=== PATIENT | female | born 1965 | race Caucasian/White ===

== ENCOUNTER 2022-09-29 11:41 | Outpatient (CLI) | payer MEDICAID ==
[2022-09-29 12:05] LABS: BASOPHILS % (AUTO) 0.9 %; EOSINOPHILS # (AUTO) 0.2 10^3/uL (0.0-0.7); EOSINOPHILS % (AUTO) 3.8 %; HGB - HEMOGLOBIN 12.6 g/dL (12.0-16.0); LYMPHOCYTES # (AUTO) 1.5 10^3/uL (1.5-3.5); LYMPHOCYTES % (AUTO) 33.4 %; MEAN CORPUSCULAR HEMOGLOBIN 29.7 pg (27.0-31.0); MEAN CORPUSCULAR HGB CONC 32.3 g/dL (32.0-36.0); MEAN PLATELET VOLUME 10.2 fL (7.9-10.8); MONOCYTES # (AUTO) 0.4 10^3/uL (0.0-1.0); MONOCYTES % (AUTO) 8.2 %; NEUTROPHILS # (AUTO) 2.4 10^3/uL (1.5-6.6); NEUTROPHILS % (AUTO) 53.5 %; PLT - PLATELET COUNT 239 10^3/uL (130-450); RED BLOOD COUNT 4.24 10^6/uL (4.20-5.40); RED CELL DISTRIBUTION WIDTH 12.1 % (12.0-15.0); WHITE BLOOD COUNT 4.5 x10^3/uL (4.8-10.8)
[2022-09-29 12:23] LABS: ALBUMIN 3.9 g/dL (3.2-5.5); ALBUMIN/GLOBULIN RATIO 1.3 (1.0-2.2); ALKALINE PHOSPHATASE 70 IU/L (42-121); ALT ALANINE AMINOTRANSFERASE 16 IU/L (10-60); AST ASPARTATE AMINOTRANSFERASE 21 IU/L (10-42); BILIRUBIN,TOTAL 0.5 mg/dL (0.2-1.0); BUN - BLOOD UREA NITROGEN 13 mg/dL (6-20); CALCIUM 9.1 mg/dL (8.5-10.3); CARBON DIOXIDE - CO2 24 mmol/L (21-32); CHLORIDE 107 mmol/L (101-111); CHOL/HDL RATIO 1.8 (<4.4); CHOLESTEROL 125 mg/dL; CREATININE 0.7 mg/dL (0.4-1.0); GFR - MDRD 86 (>89); GLUCOSE 106 mg/dL (70-100); HDL CHOLESTEROL 68 mg/dL; LDL CHOLESTEROL,CALCULATED 48 mg/dL; LDL/HDL RATIO 0.7 (<4.4); POTASSIUM 3.5 mmol/L (3.5-5.0); SODIUM 140 mmol/L (135-145); TRIGLYCERIDES 47 mg/dL; VLDL CHOLESTEROL 9 mg/dL
[2022-09-29 12:32] LABS: THYROID STIMULATING HORMONE 0.64 uIU/mL (0.34-5.60)
== END 2022-09-29 11:42 | disposition home or self-care (01) ==
LOC: LAB 11:41
PROVIDERS: ATTEND Physician Assistant
DX: I10 Essential (primary) hypertension (principal); Z13.220 Encounter for screening for lipoid disorders
CPT/HCPCS: 36415; 80053; 80061; 83721; 84443; 85025

== ENCOUNTER 2022-10-11 15:19 | Emergency (ER) | payer MEDICAID ==
[2022-10-11 16:23] LABS: BASOPHILS % (AUTO) 0.8 %; EOSINOPHILS % (AUTO) 1.2 %; HCT - HEMATOCRIT 44.1 % (37.0-47.0); HGB - HEMOGLOBIN 13.8 g/dL (12.0-16.0); LYMPHOCYTES # (AUTO) 1.4 10^3/uL (1.5-3.5); LYMPHOCYTES % (AUTO) 59.5 %; MEAN CORPUSCULAR HEMOGLOBIN 28.5 pg (27.0-31.0); MEAN CORPUSCULAR HGB CONC 31.3 g/dL (32.0-36.0); MEAN CORPUSCULAR VOLUME 91.1 fL (81.0-99.0); MONOCYTES # (AUTO) 0.2 10^3/uL (0.0-1.0); NEUTROPHILS # (AUTO) 0.8 10^3/uL (1.5-6.6); NEUTROPHILS % (AUTO) 31.5 %; PLT - PLATELET COUNT 183 10^3/uL (130-450); RED BLOOD COUNT 4.84 10^6/uL (4.20-5.40); RED CELL DISTRIBUTION WIDTH 12.2 % (12.0-15.0); WHITE BLOOD COUNT 2.4 x10^3/uL (4.8-10.8)
[2022-10-11 16:24] LABS: SLIDE REVIEW? Indicated
[2022-10-11 16:36] LABS: ALBUMIN 4.1 g/dL (3.2-5.5); ALBUMIN/GLOBULIN RATIO 1.2 (1.0-2.2); BILIRUBIN,TOTAL 0.3 mg/dL (0.2-1.0); CALCIUM 9.2 mg/dL (8.5-10.3); CREATININE 0.7 mg/dL (0.4-1.0); POTASSIUM 3.9 mmol/L (3.5-5.0); TOTAL PROTEIN 7.4 g/dL (6.7-8.2)
--- NOTE | 2022-10-11 17:05 | CT Report ---
PROCEDURE: HEAD WO INDICATIONS: headache s/p fall TECHNIQUE: Noncontrast 4.5 mm thick angled axial sections acquired from the foramen magnum to the vertex. For r adiation dose reduction, the following was used: automated exposure control, adjustment of mA and/or kV according to patient size. COMPARISON: None. FINDINGS: Image quality: Excellent. CSF spaces: Basal cisterns are patent. No extra-axial fluid collections. Ventricles are normal in size and shape. Brain: No midline shift. There is subtle hyperdensity along the lateral left frontal cortex seen on image 17/3 as well as image 11/4. This may be artifact. However, products of hemorrhage cannot be exc luded. Montoya-white matter interface is normal. Skull and face: Calvarium and visualized facial bones are intact, without suspicious lesions. Sinuses: Visualized sinuses and mastoids are clear. IMPRESSION: Subtle cortical hyperdensity along the left lateral frontal cortex may be artifact. Mikal ot exclude products of hemorrhage. Comment: Consider brain MRI for further evaluation. Reviewed by: Mak Sibley MD on 10/11/2022 5:04 PM PST Approved by: Mak Sibley MD on 10/11/2022 5:04 PM PST Station ID: [id number]
[2022-10-11 17:07] LABS: PLATELET ESTIMATE, MANUAL NORMAL (130-450,000) (NORMAL); PLATELET MORPHOLOGY NORMAL APPEARANCE (NORMAL); RBC MORPHOLOGY (MULTIPLE) NORMAL APPEARANCE (NORMAL); WBC MORPHOLOGY (MULTIPLE) NORMAL APPEARANCE (NORMAL)
[2022-10-11] MEDS ORDERED: HYDROmorphone 1 MG/ML CARPUJECT IVP STA (17:26)
--- NOTE | 2022-10-11 17:38 | ED Physician Documentation ---
History of Present Illness - Stated complaint Stated Complaint: HEADACHE/VISION IMPAIRMENT - Chief complaint Chief Complaint: Neuro - History obtained from History obtained from: Patient - History of Present Illness Pain level max: 9 Pain level now: 9 - Additonal information Additional information: Patient is a 57-year-old female who states that she has had headaches for the past 1 year. Mainly on the right side. She has not seen her primary care provider regarding this. She states that there is a longstanding history of strokes in the family. She states she feels she has had a right-sided facial droop for the past year as well. She states that she was kept in a hospital in [place] for 4 days because "they thought that I might be at risk for a stroke." She states that she was kept on medication at that time but she does not know what the medication was or what it was for. She states that she has only been taking Tylenol for the headache. She states that she did fall last night but does not think she struck her head. No nausea or vomiting. Worse with light and sound. Nothing makes it better. She states that the headache recurs every few days. She states that it usually lasts for 1 to 3 days. Review of Systems Constitutional: denies: Fever, Chills Nose: denies: Rhinorrhea / runny nose, Congestion GI: denies: Vomiting, Diarrhea Skin: denies: Rash Musculoskeletal: denies: Neck pain, Back pain Neurologic: denies: Focal weakness, Numbness, Confused PD PAST MEDICAL HISTORY - Past Medical History Past Medical History: Yes Cardiovascular: Hypertension - Present Medications Home Medications: Ambulatory Orders Medication Instructions Recorded Confirmed Sumatriptan [Imitrex] 20 mg NS ONCE PRN #4 each 10/11/22 - Allergies Allergies/Adverse Reactions: Allergies Allergy/AdvReac Type Severity Reaction Status Date / Time No Known Drug Allergies Allergy Verified 10/11/22 15:59 - Living Situation Living Arrangement: reports: At home - Family History Family history: reports: Non contributory PD ED PE NORMAL - Vitals Vital signs reviewed: Yes - General General: Alert and oriented X 3, No acute distress - HEENT HEENT: Atraumatic, PERRL, Ears normal, Moist mucous membranes, Pharynx benign, Other (no temporal artery tenderness) - Neck Neck: Supple, no meningeal sign - Cardiac Cardiac: RRR, Strong equal pulses - Respiratory Respiratory: No respiratory distress, Clear bilaterally - Abdomen Abdomen: Soft, Non tender, Non distended - Back Back: No spinal TTP - Derm Derm: Warm and dry - Extremities Extremities: Normal ROM s pain, No edema - Neuro Neuro: Alert and oriented X 3, cell cleaner 2-12 intact, No motor deficit, No sensory deficit, Normal speech Eye Opening: Spontaneous Motor: Obeys Commands Verbal: Oriented GCS Score: 15 - Psych Psych: Normal mood, Normal affect - Free text exam Free text exam: NIHSS 0 Results - Vitals Vitals: Vital Signs - 24 hr 10/11/22 10/11/22 10/11/22 15:53 17:24 19:13 Temperature 36.9 C Heart Rate 66 48 L 62 Respiratory 18 19 Rate Blood Pressure 122/62 146/86 H O2 Saturation 99 100 98 10/11/22 21:00 Temperature Heart Rate 60 Respiratory 23 Rate Blood Pressure 105/62 O2 Saturation 98 Oxygen O2 Source Room air - EKG (time done) 1930 Rate: Rate (enter#) (48) Rhythm: Sinus bradycardia [place]: Normal Intervals: Normal AK QRS: Normal Ischemia: Normal ST segments Computer interpretation: Agree with computer - Labs Labs: Laboratory Tests 10/11/22 10/11/22 16:20 16:20 WBC 2.4 L RBC 4.84 Hgb 13.8 Hct 44.1 MCV 91.1 MCH 28.5 MCHC 31.3 L RDW 12.2 Plt Count 183 MPV 10.0 Neut # (Auto) 0.8 L Lymph # (Auto) 1.4 L [place] # (Auto) 0.2 Eos # (Auto) 0.0 Baso # (Auto) 0.0 Absolute Nucleated RBC 0.00 Nucleated RBC % 0.0 Manual Slide Review Indicated WBC Morphology NORMAL APPEARANCE Platelet Estimate NORMAL (130-450,000) Platelet Morphology NORMAL APPEARANCE RBC Morph Micro Appear NORMAL APPEARANCE Sodium 139 Potassium 3.9 Chloride 105 Carbon Dioxide 28 Anion Gap 6.0 BUN 10 Creatinine 0.7 Estimated GFR (MDRD) 86 L Glucose 89 Calcium 9.2 Total Bilirubin 0.3 AST 28 ALT 23 Alkaline Phosphatase 60 Total Protein 7.4 Albumin 4.1 Globulin 3.3 Albumin/Globulin Ratio 1.2 Lipase 46 - Rads (name of study) head CT Radiology: Final report received, See rad report brain MRI Radiology: Final report received, See rad report PD Medical Decision Making - ED course Complexity details: reviewed results, re-evaluated patient, considered differential, d/w patient ED course: Mild leukopenia, but otherwise normal lab testing.No acute findings on head CT or brain MRI. Headache resolved with Toradol, beandryl and droperidol IV. No evidence of subarachnoid hemorrhage. No evidence of temporal arteritis. Patient is well appearing, non toxic. It sounds as if the patient is suffering from likely migraine headaches. We will have her follow up with her doctor for further care. Patient counseled regarding signs and symptoms for which I believe an urgent reevaluation would be necessary. Patient with good understanding of and agreement to plan and is comfortable going home at this time. Departure - Departure Disposition: Home, Self Care Clinical Impression: Migraine Qualifiers: Migraine type: without aura Status migrainosus presence: without status migrainosus Intractability: not intractable Qualified Code(s): G43.009 - Migraine without aura, not intractable, without status migrainosus Condition: Good Instructions: ED Headache Migraine Follow-Up: your,doctor in 1 week [Other] Prescriptions: Sumatriptan [Imitrex] 20 mg NS ONCE PRN #4 each PRN Reason: headache Comments: Your prescription was sent to the [facility] pharmacy. Your head CT and MRI do not show any acute abnormalities today. Your laboratory testing does not show any significant abnormalities either. Please follow-up with your doctor for further care. Please return if you worsen. Your CT and MRI results are below. MRI BRAIN WITHOUT: FINDINGS: Image quality: Excellent. CSF Spaces: Basal cisterns are patent. No extra-axial fluid collections. Ventricles are normal in size and shape. Brain: Scrutiny is given to the area of apparent abnormality seen on the CT involving the anterolateral left frontal lobe. At this site, no findings of hemosiderin deposition or hemorrhage can be seen. No abnormal brain edema can be seen within this region. No intracranial masses or hemorrhage. Montoya/white matter interface is normal. Brainstem appears normal. Diffusion-weighted images demonstrate no acute ischemic insult. No chronic ischemic insults. Normal intravascular flow voids are present. Skull and face: Calvarium has normal marrow signal. Orbits appear normal. Sinuses: Sinuses and mastoids are clear. IMPRESSION: No findings of hemorrhage can be seen at the site of the apparent CT abnormality. The CT findings are attributed to artifact, potentially related to motion artifact or beam hardening artifact. No findings of acute or subacute infarction are seen. HEAD W/O CT: FINDINGS: Image quality: Excellent. CSF spaces: Basal cisterns are patent. No extra-axial fluid collections. Ventricles are normal in size and shape. Brain: No midline shift. There is subtle hyperdensity along the lateral left frontal cortex seen on image 17/3 as well as image 11/4. This may be artifact. However, products of hemorrhage cannot be excluded. Montoya-white matter interface is normal. Skull and face: Calvarium and visualized facial bones are intact, without suspicious lesions. Sinuses: Visualized sinuses and mastoids are clear. IMPRESSION: Subtle cortical hyperdensity along the left lateral frontal cortex may be artifact. Cannot exclude products of hemorrhage. Comment: Consider brain MRI for further evaluation. Discharge Date/Time: 10/11/22 21:20
--- NOTE | 2022-10-11 18:56 | MRI Report ---
PROCEDURE: BRAIN WO INDICATIONS: R facial droop x 1 yr, [place] x 1 yr, poss bleed on CT TECHNIQUE: Noncontrast axial T1 spin echo, axial T2 fast spin echo, sagittal and axial FLAIR, coronal T2 fast sp in echo, axial gradient echo, axial diffusion and ADC through the brain. COMPARISON: Correlation is made with the prior head CT, 10/11/2022 FINDINGS: Image quality: Excellent. CSF Spaces: Basal cisterns are patent. No extra-axial fluid collections. Ventricles are normal in size and shape. Brain: Scrutiny is given to the area of apparent abnormality seen on the CT involving the anterolate ral left frontal lobe. At this site, no findings of hemosiderin deposition or hemorrhage can be seen. No abnormal brain edema can be seen within this region. No intracranial masses or hemorrhage. Montoya/white matter interface is normal. Brainstem appears norm al. Diffusion-weighted images demonstrate no acute ischemic insult. No chronic ischemic insults. N ormal intravascular flow voids are present. Skull and face: Calvarium has normal marrow signal. Orbits appear normal. Sinuses: Sinuses and mastoids are clear. IMPRESSION: No findings of hemorrhage can be seen at the site of the apparent CT abnormality. The CT findings are attributed to artifact, potentially related to motion artifact or beam hardening artifact. No findings of acute or subacute infarction are seen. Reviewed by: Gino Nolan MD on 10/11/2022 5:54 PM [place] Approved by: Gino Nolan MD on 10/11/2022 5:54 PM [facility] Station ID: [id number]
[2022-10-11] MEDS ORDERED: SUCRALFATE 1 GM/10 ML UDC PO STA (19:20)
[2022-10-11] MEDS ORDERED: MAG HYDROX/AL HYDROX/SIMETH 30 ML UDC PO STA (19:20)
[2022-10-11] MEDS ORDERED: KETOROLAC 30 MG/ML VIAL IVP STA (19:49)
[2022-10-11] MEDS ORDERED: DROPERIDOL 5 MG/2 ML VIAL IVP STA (19:49)
[2022-10-11] MEDS ORDERED: diphenhydrAMINE INJ 50 MG/ML VIAL IVP STA (19:49)
[2022-10-11 21:08] VITALS: BP 105/62
== END 2022-10-11 21:20 | disposition home or self-care (01) ==
LOC: ED 15:19
DX: G43.009 Migraine without aura, not intractable, without status migrainosus (principal); I10 Essential (primary) hypertension
CPT/HCPCS: 36415; 70450; 70551; 80053; 83690; 85025; 93005; 96374; 96375; 99284; A9270; J1170; J1200

== ENCOUNTER 2022-11-09 07:23 | Outpatient (CLI) | payer MEDICAID ==
--- NOTE | 2022-11-09 09:40 | MRI Report ---
PROCEDURE: LUMBAR SPINE WO INDICATIONS: DDD LUMBAR SPINE TECHNIQUE: Noncontrast sagittal T1 spin echo and T2 fast echo, sagittal STIR, axial T1 and T2 fast spin echo thr ough the lumbar spine. In cases with scoliosis, additional coronal T2 fast spin echo may be performe d. COMPARISON: None. FINDINGS: Image quality: Excellent. Alignment and Curvature: No plain films are available for comparison. Thus, for numbering purposes, 5 lumbar type vertebral bodies will be presumed for the current report. This should be confirmed with plain film correlation prior to any lumbar spinal intervention. There is loss of normal lumbar lordo sis. There is 4 mm of retrolisthesis of L1 on L2. 3 mm of retrolisthesis of L2 on L3. 2 mm of retroli sthesis of L3 on L4. Bone Marrow: Marrow is of normal overall signal. No acute vertebral body compression fractures. Mi ld reactive signal throughout the endplates of the lumbar lower thoracic spine, worst at T12-L1, L1-L 2, and L2 on L3. Spinal Cord: Conus medullaris terminates at the upper L1 level. Visualized cord demonstrates normal signal and size. Paraspinous Soft Tissues: No paravertebral masses. T12-L1: Mild disc desiccation and diffuse disc bulge. Mild canal stenosis. No foraminal stenosis. L1-L2: Mild disc height loss and desiccation. Mild diffuse disc bulge. Mild canal stenosis. Mild b ilateral foraminal stenosis. L2-L3: Mild disc height loss and desiccation. Mild facet and ligament flavum hypertrophy. Mild epi dural lipomatosis. Mild canal stenosis. Mild bilateral foraminal stenosis. L3-L4: Mild disc height loss and desiccation. Mild diffuse disc bulge. Mild facet and ligament flav um hypertrophy. Mild epidural lipomatosis. Mild canal stenosis. Mild bilateral foraminal stenosis. L4-L5: Mild facet and ligament flavum hypertrophy. No significant canal, nor foraminal stenosis. L5-S1: Mild disc desiccation and diffuse disc bulge. Mild bilateral facet hypertrophy. No significa nt canal stenosis. Mild bilateral foraminal stenosis. IMPRESSION: 1. Multilevel degenerative disc and facet disease, in addition to epidural lipomatosis and ligamentum flavum hypertrophy. 2. Mild multilevel canal and foraminal stenoses. No neural impingement. Reviewed by: Josephine Luna MD on 11/09/2022 9:39 AM PDT Approved by: Josephine Luna MD on 11/09/2022 9:39 AM PDT Station ID: [id number]
== END 2022-11-09 07:24 | disposition home or self-care (01) ==
LOC: DI 07:23
PROVIDERS: ATTEND Family Medicine
DX: M51.36 Other intervertebral disc degeneration, lumbar region (principal); M47.816 Spondylosis without myelopathy or radiculopathy, lumbar region; E88.2 Lipomatosis, not elsewhere classified; M46.06 Spinal enthesopathy, lumbar region; M48.061 Spinal stenosis, lumbar region without neurogenic claudication; M48.07 Spinal stenosis, lumbosacral region

== ENCOUNTER 2023-01-19 12:13 | Emergency (ER) | payer MEDICAID ==
--- NOTE | 2023-01-19 13:14 | XRAY Report ---
PROCEDURE: Knee 3 View LT INDICATIONS: sprain after rolling on barrell TECHNIQUE: 3 views of the left knee(s) were acquired. COMPARISON: None. FINDINGS: Bones: No fractures or dislocations. No suspicious bony lesions. Tricompartment osteophytes. Soft tissues: No knee joint effusion. No suspicious soft tissue calcifications or masses. IMPRESSION: Degenerative arthritis. No acute bony abnormality. If there remains a high clinical concern for fracture, including inability to bear weight, consider cross-sectional imaging to exclude an occult fracture. Reviewed by: Mak Sibley MD on 01/19/2023 1:12 PM PDT Approved by: Mak Sibley MD on 01/19/2023 1:12 PM PDT Station ID: [id number]
[2023-01-19] MEDS ORDERED: KETOROLAC 60 MG/2 ML VIAL IM STA (13:45)
--- NOTE | 2023-01-19 13:49 | ED Physician Documentation ---
PD HPI LOWER EXT INJURY - Stated complaint Stated Complaint: LT KNEE INJ - Chief complaint Chief Complaint: Ext Problem - History obtained from History obtained from: Patient - Additional information Additional information: 57-year-old woman with a lot of bone and joint issues was pushing a barrell About a month ago and developed left knee pain. Its been persistent ever since and now cannot walk for the last 5 days. She has been told she may have fibromyalgia. She moved from [place] 9 months ago where she was on pain management with hydrocodone 10 mg but has not been able to get that here. PD PAST MEDICAL HISTORY - Past Medical History Cardiovascular: Hypertension - Present Medications Home Medications: Ambulatory Orders Medication Instructions Recorded Confirmed Sumatriptan [Imitrex] 20 mg NS ONCE PRN #4 each 10/11/22 Hydrocodone/Acetaminophen 1 each PO QID PRN #12 tablet 01/19/23 [Hydrocodone-Acetamin 10-300 mg] - Allergies Allergies/Adverse Reactions: Allergies Allergy/AdvReac Type Severity Reaction Status Date / Time Penicillins Allergy Emesis Verified 01/19/23 12:32 PD ED PE NORMAL - Vitals Vital signs reviewed: Yes - General General: Alert and oriented X 3, No acute distress - Extremities Extremities: Other (Left knee is without effusion, no warmth or redness. TTP medially. She has a lot of pain with range of motion, but ligamentous testing is intact.) - Neuro Neuro: Alert and oriented X 3 Results - Vitals Vitals: Vital Signs - 24 hr 01/19/23 12:28 Temperature 36.7 C Heart Rate 60 Respiratory 16 Rate Blood Pressure 130/95 H O2 Saturation 98 Oxygen O2 Source Room air - Rads (name of study) Three-view x-ray of left knee is negative. Relevant Findings:: Final report received, EMP independent interpretation of test PD Medical Decision Making - ED course ED course: Time course and exam are not consistent with infection. She does have possibly fibromyalgia based on prior diagnoses and was previously in pain management but not now. She requested a shot of Dilaudid, I gave her a shot of Toradol. Departure - Departure Disposition: 01 Home, Self Care Clinical Impression: Left knee pain Condition: Good Record reviewed to determine appropriate education?: Yes Instructions: ED Knee Pain [facility]O Follow-Up: Orthopedic Care [Provider Group] Prescriptions: Hydrocodone/Acetaminophen [Hydrocodone-Acetamin 10-300 mg] 1 each PO QID PRN #12 tablet PRN Reason: pain Comments: Follow-up with your primary care physician and orthopedics, call today for next available appointments. Return for new or worsening symptoms. I sent your prescription electronically to [facility] in [place]. I am prescribing a short course of narcotic pain medication for you. These are potentially dangerous and addictive medications that should be used carefully. These medications may constipate you. Take an otis-uma-qfytiov stool softener (docusate) twice daily with plenty of water while taking these medications. If you go 24 hours without a bowel movement, take xpok-[id number]-[id number] miralax, per package instructions. Do not drink or drive while taking these medications. If you received narcotic or sedating medications while in the emergency department, do not drive for 24 hours. Store this medication in a safe, secure place and out of reach of children. It is a violation of federal law to give or sell this medication to another person or to use in a manner other than prescribed. The ED will not refill narcotic prescriptions, including prescriptions lost or stolen. To dispose of unwanted medications: 1. [facility] [address] in [place] has a medication drop box. They accept prescription medications (in pill form) Tuesday through Tuesday 9:00 a.m. to 5:00 p.m. 2. The [facility] [employer] accepts prescription medications (in pill form only) for disposal year round. Call for more information. 3. Contact the [facility] for the next [facility] sponsored prescription drug collection event. , [phone], or [phone]; Note that many narcotic pain relievers also contain Tylenol/acetaminophen. Please ensure that your total dose of acetaminophen from all sources does not exceed 3 g (3000 mg) per day.
[2023-01-19 14:26] VITALS: BP 131/74
== END 2023-01-19 14:25 | disposition home or self-care (01) ==
LOC: ED 12:13
DX: M25.562 Pain in left knee (principal)
CPT/HCPCS: 96372; 99283; 99284

== ENCOUNTER 2023-01-28 11:25 | Emergency (ER) | payer MEDICAID ==
--- NOTE | 2023-01-28 13:28 | XRAY Report ---
PROCEDURE: Knee 4 View LT INDICATIONS: pain TECHNIQUE: 4 views of the left knee(s) were acquired. COMPARISON: None. FINDINGS: Bones: No fractures or dislocations. No suspicious bony lesions. Tricompartmental joint space sarah rowing with associated osteophytosis. Soft tissues: No knee joint effusion. No suspicious soft tissue calcifications or masses. IMPRESSION: No acute bony abnormality. Mild tricompartmental osteoarthritis. Kellgren-Brett scale of osteoarthritis: 2. Reviewed by: Deepak Roberts on 01/28/2023 1:27 PM PDT Approved by: Deepak Roberts on 01/28/2023 1:27 PM PDT Station ID: [id number]
[2023-01-28] MEDS ORDERED: HYDROmorphone 1 MG/ML CARPUJECT IM STA (13:50)
--- NOTE | 2023-01-28 13:53 | ED Physician Documentation ---
History of Present Illness - Stated complaint Stated Complaint: LFT KNEE PX - Chief complaint Chief Complaint: Ext Problem - History obtained from History obtained from: Patient - History of Present Illness Timing: How many weeks ago (several) Pain level max: 9 Pain level now: 9 - Additonal information Additional information: L knee pain for several weeks after pushing a garden barrel at home. [place] a pop. Seen here last week for same, given Toradol and hydrocodone. She states that the pain has continued to worsen. She states she is unable to walk. She borrowed a friend's walker. She has not tried a brace. She did see her PCP and is awaiting a referral to orthopedics. She states she is out of pain medications. No new injuries. Worse with walking, better with rest Review of Systems Constitutional: denies: Fever, Chills Respiratory: denies: Cough GI: denies: Nausea, Vomiting, Diarrhea Skin: denies: Rash Musculoskeletal: denies: Neck pain, Back pain Neurologic: denies: Headache PD PAST MEDICAL HISTORY - Past Medical History Cardiovascular: Hypertension - Present Medications Home Medications: Ambulatory Orders Medication Instructions Recorded Confirmed Sumatriptan [Imitrex] 20 mg NS ONCE PRN #4 each 10/11/22 Hydrocodone/Acetaminophen 1 each PO TID PRN #10 tablet 01/19/23 [Hydrocodone-Acetamin 10-300 mg] Diclofenac Sodium 1% Gel [Voltaren 4 gm TOP QID PRN #1 each 01/28/23 Gel] Hydrocodone/Acetaminophen 1 tab PO Q8H PRN #14 tablet 01/28/23 [Hydrocodone-Acetamin 10-325 mg] - Allergies Allergies/Adverse Reactions: Allergies Allergy/AdvReac Type Severity Reaction Status Date / Time Penicillins Allergy Emesis Verified 01/28/23 11:46 PD ED PE NORMAL - Vitals Vital signs reviewed: Yes - General General: Alert and oriented X 3, No acute distress - HEENT HEENT: Moist mucous membranes - Neck Neck: Supple, no meningeal sign - Cardiac Cardiac: RRR, Strong equal pulses - Respiratory Respiratory: No respiratory distress, Clear bilaterally - Derm Derm: Warm and dry - Extremities Extremities: Other (L knee - Patient is unable to tolerate any ligamentous testing to the knee. Unable to tolerate meniscus testing. Mild swelling. No joint effusion. No skin changes. Neurovascular intact.) - Neuro Neuro: Alert and oriented X 3 - Psych Psych: Normal mood, Normal affect Results - Vitals Vitals: Vital Signs - 24 hr 01/28/23 01/28/23 11:41 14:14 Temperature 36.0 C L Heart Rate 81 85 Respiratory 16 15 Rate Blood Pressure 118/98 H 141/95 H O2 Saturation 99 100 Oxygen O2 Source Room air - Rads (name of study) Left knee x-ray Relevant Findings:: Final report received, See rad report (No acute abnormality) PD Medical Decision Making - ED course Complexity details: reviewed results, re-evaluated patient, considered differential, d/w patient ED course: No acute findings on x-ray of the left knee. Placed in articulating knee brace for comfort. We will place the patient on crutches and make her nonweightbearing. Patient has a referral to orthopedics already. She was given a dose of IM Dilaudid here. No significant joint effusion. We will place her on pain medication for home and have her follow-up with orthopedics as scheduled. No indication for advanced imaging at this time. Patient counseled regarding signs and symptoms for which I believe and urgent re-evaluation would be necessary. Patient with good understanding of and agreement to plan and is comfortable going home at this time This document was made in part using voice recognition software. While efforts are made to proofread this document, sound alike and grammatical errors may occur. Departure - Departure Disposition: 01 Home, Self Care Clinical Impression: Left knee pain Qualifiers: Chronicity: acute Qualified Code(s): M25.562 - Pain in left knee Condition: Good Instructions: ED Knee Pain UKO Follow-Up: Miladis De Luna PA-C [Primary Care Provider] - Within 1 week Prescriptions: Hydrocodone/Acetaminophen [Hydrocodone-Acetamin 10-325 mg] 1 tab PO Q8H PRN #14 tablet PRN Reason: knee pain Diclofenac Sodium 1% Gel [Voltaren Gel] 4 gm TOP QID PRN #1 each PRN Reason: knee pain Comments: Your prescriptions were sent to the [facility] pharmacy. Please follow-up with your doctor for further care. Please continue to wear the brace at home, please make sure you follow-up with orthopedics for further care. You are given crutches today as well. Your x-rays do not show any acute abnormalities. Discharge Date/Time: 01/28/23 14:45
[2023-01-28 14:19] VITALS: BP 141/95
== END 2023-01-28 14:45 | disposition home or self-care (01) ==
LOC: ED 11:25
DX: M25.562 Pain in left knee (principal)
CPT/HCPCS: 73564; 96372; 99283; J1170

== ENCOUNTER 2023-02-14 08:00 | Outpatient (CLI) | payer MEDICAID ==
--- NOTE | 2023-02-14 14:18 | XRAY Report ---
PROCEDURE: Knee 3 View LT INDICATIONS: LEFT KNEE PAIN TECHNIQUE: 3 views of the left knee(s) were acquired. COMPARISON: None. FINDINGS: Bones: No fractures or dislocations. No suspicious bony lesions. Moderate medial and mild lateral c ompartmental joint space narrowing with small marginal osteophytes. Patellofemoral joint space narrow ing noted as well Soft tissues: No knee joint effusion. No suspicious soft tissue calcifications or masses. IMPRESSION: Tricompartmental osteoarthritis Reviewed by: Kristian Alves MD on 02/14/2023 1:16 PM [email or web address] Approved by: Kristian Alves MD on 02/14/2023 1:16 PM AKDT Station ID: [id number]
== END 2023-02-14 23:59 | disposition home or self-care (01) ==
LOC: DI.WOS 08:00
PROVIDERS: ATTEND Physician Assistant Surgical
DX: M17.12 Unilateral primary osteoarthritis, left knee (principal)

== ENCOUNTER 2023-03-25 06:33 | Day surgery (SDC) | payer MEDICAID ==
[2023-03-25] MEDS ORDERED: LACTATED RINGERS 1,000 ML IV ONE ×2 (06:44→08:32)
--- NOTE | 2023-03-25 07:14 | ANESTHESIA ---
Pre-Anesthesia VS, & Labs - Diagnosis GERD, fam hx colon ca - Procedure EGD + colonoscopy Vital Signs: Temp Pulse Resp BP Pulse Ox O2 Flow Rate 36.4 C L 78 17 109/93 H 96 03/25/23 06:36 03/25/23 06:36 03/25/23 06:36 03/25/23 06:36 03/25/23 06:36 Height: 5 ft 4 in Weight (kg): 77.6 kg Body Mass Index: 29.3 BMI Classification: Overweight - NPO >8 hours - Is Patient ?: No - Lab Results Lab results reviewed: Yes Home Medications and Allergies Allergies/Adverse Reactions: Allergies Allergy/AdvReac Type Severity Reaction Status Date / Time Penicillins Allergy Emesis Verified 01/28/23 11:46 Anes History & Medical History - Anesthetic History Anesthesia Complications: reports: No previous complications Family history of Anesthesia Complications: Denies Family history of Malignant Hyperthermia: Denies - Medical History Cardiovascular: reports: Hypertension Pulmonary: reports: Asthma, Sleep apnea (noncompliant cpap use) Gastrointestinal: reports: GERD Blood Disorders: reports: None Smoking Status: Current every day smoker Exam General: Alert, Oriented x3, Cooperative Dental: Dentures full Upper, Dentures full Lower Mouth Openin Fingerbreadth Neck Mobility: Normal Mallampati classification: II Thyromental Distance: 4-6 cm Respiratory: Lungs clear Cardiovascular: Regular rate Plan Anesthesia Type: General, MAC Consent for Procedure(s) Verified and Reviewed: Yes Code Status: Attempt Resuscitation ASA classification: 2-Mild systemic disease Is this case an emergency?: Yes
[2023-03-25] MEDS ORDERED: GLYCOPYRROLATE 1 MG/5 ML VIAL ONE (08:26)
[2023-03-25] MEDS ORDERED: PROPOFOL 200 MG/20 ML VIAL IVP ONE (08:26)
[2023-03-25] MEDS ORDERED: PROPOFOL 500 MG/50 ML 500 MG/50 ML VIAL ONE (08:26)
[2023-03-25] MEDS ORDERED: ePHEDrine 50 MG/ML VIAL IVP ONE (08:26)
[2023-03-25 09:05] VITALS: BP 120/79; O2SAT 96
--- NOTE | 2023-03-25 13:28 | ANESTHESIA POST OP EVALUATION ---
Anesthesia Post Eval - Post Anesthesia Eval Vitals: Last Vital Signs Temp 36.4 C L 03/25/23 09:01 Pulse 66 03/25/23 09:01 Resp 18 03/25/23 09:01 BP 120/79 03/25/23 09:01 Pulse Ox 96 03/25/23 09:01 O2 Flow Rate CV Function Including HR & BP: Stable Pain Control: Satisfactory Nausea & Vomiting: Negative Mental Status: Baseline Respiratory Status: Airway Patent Hydration Status: Satisfactory Anesthesia Complications: None
== END 2023-03-25 06:34 | disposition home or self-care (01) ==
LOC: SDS 06:33
PROVIDERS: ATTEND Surgery
PROC: 0DB68ZX Excision of Stomach, Via Natural or Artificial Opening Endoscopic, Diagnostic (ICD-10-PCS; 2023-03-25)
PROC: 0DJD8ZZ Inspection of Lower Intestinal Tract, Via Natural or Artificial Opening Endoscopic (ICD-10-PCS; principal; 2023-03-25 07:30)
PROC: 0DB58ZX Excision of Esophagus, Via Natural or Artificial Opening Endoscopic, Diagnostic (ICD-10-PCS; 2023-03-25 07:30)
DX: Z12.11 Encounter for screening for malignant neoplasm of colon (principal); K57.30 Diverticulosis of large intestine without perforation or abscess without bleeding; K21.00 Gastro-esophageal reflux disease with esophagitis, without bleeding; K25.9 Gastric ulcer, unspecified as acute or chronic, without hemorrhage or perforation; Z80.0 Family history of malignant neoplasm of digestive organs; G47.30 Sleep apnea, unspecified; J45.909 Unspecified asthma, uncomplicated; I10 Essential (primary) hypertension
CPT/HCPCS: 43239; 45378; J7120

== ENCOUNTER 2023-04-21 09:28 | Outpatient (CLI) | payer MEDICAID ==
[2023-04-21 09:44] LABS: BASOPHILS # (AUTO) 0.1 10^3/uL (0.0-0.1); BASOPHILS % (AUTO) 1.1 %; EOSINOPHILS # (AUTO) 0.3 10^3/uL (0.0-0.7); HCT - HEMATOCRIT 40.9 % (37.0-47.0); LYMPHOCYTES # (AUTO) 1.4 10^3/uL (1.5-3.5); LYMPHOCYTES % (AUTO) 26.4 %; MEAN CORPUSCULAR HEMOGLOBIN 29.3 pg (27.0-31.0); MEAN CORPUSCULAR HGB CONC 31.8 g/dL (32.0-36.0); MEAN CORPUSCULAR VOLUME 92.1 fL (81.0-99.0); MEAN PLATELET VOLUME 9.4 fL (7.9-10.8); MONOCYTES # (AUTO) 0.3 10^3/uL (0.0-1.0); MONOCYTES % (AUTO) 5.7 %; NEUTROPHILS # (AUTO) 3.3 10^3/uL (1.5-6.6); NEUTROPHILS % (AUTO) 61.4 %; PLT - PLATELET COUNT 327 10^3/uL (130-450); RED BLOOD COUNT 4.44 10^6/uL (4.20-5.40); RED CELL DISTRIBUTION WIDTH 12.5 % (12.0-15.0); WHITE BLOOD COUNT 5.4 x10^3/uL (4.8-10.8)
[2023-04-21 10:03] LABS: ALBUMIN 4.3 g/dL (3.2-5.5); ALBUMIN/GLOBULIN RATIO 1.3 (1.0-2.2); BILIRUBIN,TOTAL 0.8 mg/dL (0.2-1.0); CALCIUM 9.8 mg/dL (8.5-10.3); CREATININE 0.9 mg/dL (0.6-1.3); TOTAL PROTEIN 7.5 g/dL (6.4-8.9)
[2023-04-21 13:22] LABS: ESTIMATED AVERAGE GLUCOSE 105 mg/dL (70-100); HEMOGLOBIN A1c% 5.3 % (4.27-6.07)
== END 2023-04-21 09:29 | disposition home or self-care (01) ==
LOC: LAB 09:28
PROVIDERS: ATTEND Physician Assistant
DX: I10 Essential (primary) hypertension (principal); R73.01 Impaired fasting glucose
CPT/HCPCS: 36415; 80053; 83036; 85025

== ENCOUNTER 2023-04-27 14:32 | Outpatient (CLI) | payer MEDICAID ==
--- NOTE | 2023-04-27 16:53 | Ultrasound Report ---
PROCEDURE: Pelvic w/Transvaginal INDICATIONS: OVARIAN CYST TECHNIQUE: Real-time scanning was performed of the pelvic organs, with image documentation. Additional endovagi nal scanning was necessary due to incomplete visualization of the adnexal and endometrial structures by transabdominal scanning. COMPARISON: None. FINDINGS: Uterus: Uterus is retroverted and normal in size at 5.3 x 2.6 x 3.3 cm. The myometrium is mildly he terogeneous. There is an exophytic, subserosal posterior fundal fibroid measuring 1.3 x 1.1 x 1.4 cm. There is a mass near the anterior cervix/lower uterine segment measuring about 1.1 cm in maximal berlin meter without increased vascular flow. There is through transmission. The cervix contains several oth er subcentimeter nabothian cysts.. The endometrium measures 4.1 mm in combined thickness. No increa sed uterine vascularity. Ovaries: The right ovary measures 1.9 x 1.5 x 1.3 cm, with a calculated ovarian volume of 1.9 cc. T he left ovary measures 1.9 x 1.0 x 1.7 cm, with a calculated ovarian volume of 1.7 cc. The ovaries h ave a normal sonographic appearance. There is a 1.6 cm paraovarian cyst in the left adnexa. There is no free adnexal fluid. A few calcifications are seen in the left ovary. No adnexal masses are seen. No cystic lesions measuring greater than 3 cm. Other: No pathologic free abdominal or pelvic fluid. IMPRESSION: 1. 1.6 cm left paraovarian cyst. 2. No other suspicious adnexal cysts. 3. Possible cervical fibroid versus complex nabothian cyst. Reviewed by: Nichole Wiggins MD on 04/27/2023 4:52 PM PDT Approved by: Nichole Wiggins MD on 04/27/2023 4:52 PM PDT Station ID: [id number]
== END 2023-04-27 14:33 | disposition home or self-care (01) ==
LOC: DI 14:32
PROVIDERS: ATTEND Physician Assistant
DX: N83.202 Unspecified ovarian cyst, left side (principal)

== ENCOUNTER 2023-05-03 11:28 | Emergency (ER) | payer MEDICAID ==
--- NOTE | 2023-05-03 12:47 | ED Physician Documentation ---
PD HPI BACK PAIN - Stated complaint Stated Complaint: LT KNEE/LOWER BACK PX - Chief complaint Chief Complaint: Back Pain - History obtained from History obtained from: Patient - History of Present Illness Timing - onset: How many days ago (has had increased back pain over baseline for couple of days without new injury. Has had flare ups like this every couple of months. Her left knee is hurting more than baseline with significant arthritis there. To gert knee replacement when other stuff better. Seen in [facility] recently for lower abd px), Chronic Timing - details: Gradual onset, Still present Location: Lower Quality: Pain, Spasm, Aching, Similar to prior episodes Associated symptoms: No: Fever, Weakness, Numbness, Incontinent of urine Improves with: No: Meds Worsened by: Movement Contributing factors: No: Trauma Similar symptoms before: Diagnosis (herniated discs. No sciatica. moved from [facility] 9 months ago, with local PCP, but is just connecting with back surgeon. Has ortho in [place].) Recently seen: Clinic (outpt ultrasound of pelvis for abd pains and some vag bleeding. Has not gotten results as yet.) Review of Systems Constitutional: denies: Fever, Chills Nose: denies: Rhinorrhea / runny nose, Congestion Throat: denies: Sore throat Respiratory: denies: Cough Skin: denies: Rash, Lesions Musculoskeletal: reports: Back pain (saw back surgeon in [place] earlier today without new Rx. scheduling for disc injections.), Extremity pain (left knee due for knee replcement when can get scheduled.) PD PAST MEDICAL HISTORY - Past Medical History Cardiovascular: Hypertension Respiratory: Asthma, Sleep apnea (noncompliant cpap use) Endocrine/Autoimmune: None GI: GERD : None HEENT: Dental implants Psych: Depression, Anxiety, Obsessive compulsive disorder Musculoskeletal: Osteoarthritis, Chronic back pain - Past Surgical History General: Cholecystectomy, Colonoscopy, EGD - Present Medications Home Medications: Ambulatory Orders Medication Instructions Recorded Confirmed Sumatriptan [Imitrex] 20 mg NS ONCE PRN #4 each 10/11/22 03/25/23 Diclofenac Sodium 1% Gel [Voltaren 4 gm TOP QID PRN #1 each 01/28/23 03/25/23 Gel] Alprazolam [Xanax] 1 mg PO QID 03/25/23 03/25/23 Atorvastatin [Lipitor] 10 mg PO DAILY 03/25/23 03/25/23 Escitalopram Oxalate [Lexapro] 20 mg PO DAILY 03/25/23 03/25/23 Famotidine [Zantac-360 20 mg PO DAILY 03/25/23 03/25/23 (Famotidine)] Gabapentin [Neurontin] 300 mg PO TID 03/25/23 03/25/23 Lisinopril [Zestril] 2.5 mg PO DAILY 03/25/23 03/25/23 Meclizine [Antivert] 12.5 mg PO ONCE PRN 03/25/23 03/25/23 Meclizine [Antivert] 12.5 mg PO PRN PRN 03/25/23 03/25/23 Zolpidem [Ambien] 10 mg PO HS 03/25/23 03/25/23 buPROPion [Wellbutrin Sr] 100 mg PO DAILY 03/25/23 03/25/23 HYDROcod/ACETAM 5/325 [Allen 5/325] 1 ea PO Q8H PRN #25 tablet 05/03/23 dexAMETHasone [Decadron] 4 mg PO DAILY #5 tablet 05/03/23 methocarbamoL [Robaxin] 500 mg PO Q6H PRN #30 tablet 05/03/23 - Allergies Allergies/Adverse Reactions: Allergies Allergy/AdvReac Type Severity Reaction Status Date / Time Penicillins Allergy Emesis Verified 05/03/23 11:40 - Social History Smoking Status: Current every day smoker PD ED PE NORMAL - Vitals Vital signs reviewed: Yes - General General: Alert and oriented X 3, Well developed/nourished, Other - Cardiac Cardiac: RRR, No murmur - Respiratory Respiratory: Clear bilaterally - Abdomen Abdomen: Soft - Back Back: No CVA TTP - Derm Derm: Normal color, Warm and dry, No rash - Neuro Neuro: Alert and oriented X 3, No motor deficit, No sensory deficit, Normal speech Eye Opening: Spontaneous Motor: Obeys Commands Verbal: Oriented GCS Score: 15 Results - Vitals Vitals: Vital Signs - 24 hr 05/03/23 05/03/23 11:36 15:49 Temperature 37.1 C Heart Rate 90 80 Respiratory 16 16 Rate Blood Pressure 123/80 121/79 O2 Saturation 97 100 Oxygen O2 Source Room air PD Medical Decision Making - ED course Complexity details: reviewed old records (prior ED visits and treatments. I also reviewed and went over with patient the resuls of her outpatient pelvic ultrasound. Copy of report to her (she could access it on patient portal if she wanted). ), re-evaluated patient (improved pain with IM meds of Dilaudid and Toradol. Given PO decadron. Did get some nausea following and notimproved with Zofran ODT, so given Ianpsine IM with better improvement. ), considered differential (chronic back pain and without new injury. sstates gets flare ups about every few months. ) Departure - Departure Disposition: Home, Self Care Clinical Impression: Acute exacerbation of chronic low back pain, Knee pain, left Condition: Stable Record reviewed to determine appropriate education?: Yes Follow-Up: Miladis De Luna PA-C [Primary Care Provider] - [facility] [Provider Group] Prescriptions: dexAMETHasone [Decadron] 4 mg PO DAILY #5 tablet HYDROcod/ACETAM 5/325 [Allen 5/325] 1 ea PO Q8H PRN #25 tablet PRN Reason: Pain methocarbamoL [Robaxin] 500 mg PO Q6H PRN #30 tablet PRN Reason: Spasms Comments: Continue with your usual daily medicines. Gabapentin is commonly used for back pain as well make sense to continue that. We can add short-term a steroid oral medication and muscle relaxant to help with some of your symptoms. To that add Tylenol 500 to 650 mg 4 times daily for the next 7 to 10 days regularly. Use instead hydrocodone/acetaminophen every 8 hours if needed for worse pain. I sent prescriptions to your usual pharmacy. My narcotic instructions I am prescribing a short course of narcotic pain medication for you. These are potentially dangerous and addictive medications that should be used carefully. These medications may constipate you. Take an gpdo-kwo-irfylnd stool softener such as docusate twice daily with plenty of water while taking these medications. If you go 24 hours without a bowel movement, take [id number]-qyecvwe MiraLAX, per package instructions. Do not drink or drive while taking these medications. If you received narcotic or sedating medications while in the emergency department do not drive for 24 hours. Store this medication in a safe, secure place and out of reach of children. It is a violation of federal law to give or sell this medication to another person or to use in a manner other than prescribed. The ED will not refill narcotic prescriptions, including prescriptions lost or stolen. You can dispose of unwanted medications at the [facility]'s office or at several pharmacies such as [facility]. It does sound like you are reasonably concerned/nervous about the recent pelvic ultrasound and you expressed worry about the findings. I looked at the report and it did comment on some small cysts and a small mass just 1 cm which is pretty small. Your primary care likely want you to follow-up with gynecology for evaluation but the first impression on the radiology report is most likely cysts and a little thickening of the uterus called a fibroid. It did not sound highly concerning. Discharge Date/Time: 05/03/23 15:50
[2023-05-03] MEDS ORDERED: KETOROLAC 30 MG/ML VIAL IM STA (13:24)
[2023-05-03] MEDS ORDERED: HYDROmorphone 1 MG/ML CARPUJECT IM STA (13:24)
[2023-05-03] MEDS ORDERED: tiZANidine 4 MG TABLET PO STA (13:24)
[2023-05-03] MEDS ORDERED: dexAMETHasone 4 MG TABLET PO STA (13:24)
[2023-05-03] MEDS ORDERED: ONDANSETRON ODT 4 MG TABLET TL STA (13:57)
[2023-05-03] MEDS ORDERED: DROPERIDOL 5 MG/2 ML VIAL IM STA (14:44)
[2023-05-03 15:56] VITALS: BP 121/79; O2SAT 100
== END 2023-05-03 15:50 | disposition home or self-care (01) ==
LOC: ED 11:28
DX: M54.50 Low back pain, unspecified (principal); M25.562 Pain in left knee; G89.29 Other chronic pain; I10 Essential (primary) hypertension; F17.200 Nicotine dependence, unspecified, uncomplicated; Z79.899 Other long term (current) drug therapy
CPT/HCPCS: 96372; 99283; 99284; A9270; J1170; J8540; Q0162

== ENCOUNTER 2023-06-23 10:07 | Outpatient (CLI) | payer MEDICAID | END 2023-06-23 10:08 | disposition home or self-care (01) | LOC: LAB 10:07 | PROVIDERS: ATTEND Orthopaedic Surgery | DX: Z87.891 Personal history of nicotine dependence (principal) | CPT/HCPCS: 80307; 81599 ==

== ENCOUNTER 2023-06-29 07:02 | Day surgery (SDC) | payer MEDICAID ==
[~2023-06-29 07:02] MED LIST: BUPIVACAINE 0.5% PF 10 ML VIAL ONE; PROPOFOL 500 MG/50 ML 500 MG/50 ML VIAL ONE; dexAMETHasone 4 MG TABLET PO ONE
[2023-06-29] MEDS ORDERED: MIDAZOLAM 2 MG/2 ML VIAL ONE (07:03)
[2023-06-29] MEDS ORDERED: LACTATED RINGERS 1,000 ML IV ONE (07:20)
[2023-06-29] MEDS ORDERED: VANCOMYCIN 1 GM VIAL ONE (07:34)
[2023-06-29] MEDS ORDERED: BUPIVACAINE 0.25% PF 30 ML VIAL ONE ×2 (07:34→09:00)
[2023-06-29] MEDS ORDERED: KETOROLAC 30 MG/ML VIAL ONE (07:34)
[2023-06-29] MEDS ORDERED: NALOXONE 0.4 MG/ML VIAL IVP PRN (08:07)
[2023-06-29] MEDS ORDERED: ATROPINE ABBOJECT 1 MG/10 ML SYRINGE IVP PRN (08:07)
[2023-06-29] MEDS ORDERED: ePHEDrine 50 MG/ML VIAL IVP PRN (08:07)
[2023-06-29] MEDS ORDERED: fentaNYL 100 MCG/2 ML VIAL IVP PRN (08:07)
[2023-06-29] MEDS ORDERED: ONDANSETRON 4 MG/2 ML VIAL IVP PRN ×2 (08:07→11:16)
--- NOTE | 2023-06-29 08:07 | ANESTHESIA ---
Pre-Anesthesia VS, & Labs - Diagnosis b/l knee OA - Procedure L TKA Vital Signs: Temp Pulse Resp BP Pulse Ox O2 Flow Rate 36.6 C 76 19 110/76 97 06/29/23 07:21 06/29/23 07:21 06/29/23 07:21 06/29/23 07:21 06/29/23 07:21 Height: 5 ft 4 in Weight (kg): 83.8 kg Body Mass Index: 31.7 BMI Classification: Obese - NPO >8 hours - Is Patient ?: No - Lab Results Current Lab Results: Laboratory Tests 06/29/23 07:41: POC Whole Bld Glucose 115 H Lab results reviewed: Yes Home Medications and Allergies Home Medications: Ambulatory Orders Albuterol Sulf [Ventolin Hfa Inhaler] 1 - 2 puffs INH Q4HR PRN 06/20/23 Budesonide/Formoterol Fumarate [Symbicort 160-4.5 Mcg Inhaler] 2 puffs IH BID 06/20/23 Alprazolam [Xanax] 1 mg PO QID 03/25/23 Atorvastatin [Lipitor] 10 mg PO DAILY 03/25/23 Escitalopram Oxalate [Lexapro] 20 mg PO DAILY 03/25/23 Famotidine [Zantac-360 (Famotidine)] 20 mg PO DAILY 03/25/23 Gabapentin [Neurontin] 300 mg PO TID 03/25/23 Lisinopril [Zestril] 2.5 mg PO DAILY 03/25/23 Meclizine [Antivert] 12.5 mg PO PRN PRN 03/25/23 Zolpidem [Ambien] 10 mg PO HS 03/25/23 buPROPion [Wellbutrin Sr] 100 mg PO DAILY 03/25/23 Albuterol Sulf [Ventolin Hfa Inhaler] 1 - 2 puffs INH Q4HR PRN 06/20/23 Budesonide/Formoterol Fumarate [Symbicort 160-4.5 Mcg Inhaler] 2 puffs IH BID 06/20/23 Allergies/Adverse Reactions: Allergies Allergy/AdvReac Type Severity Reaction Status Date / Time Penicillins Allergy Emesis, Verified 06/29/23 06:22 rash Anes History & Medical History - Anesthetic History Anesthesia Complications: reports: No previous complications Family history of Anesthesia Complications: Denies Family history of Malignant Hyperthermia: Denies - Medical History Cardiovascular: reports: Hypertension Pulmonary: reports: Asthma, Sleep apnea Gastrointestinal: reports: GERD Urinary: reports: None Musculoskeletal: reports: Osteoarthritis, Chronic back pain (pt reports back pain w pain/weakness radiating to b/l le) Endocrine/Autoimmune: reports: None Blood Disorders: reports: None Skin: reports: Psoriasis Smoking Status: Current every day smoker Psychosocial: reports: Cannabis - Surgical History General: reports: Cholecystectomy, Colonoscopy, EGD Exam General: Alert, Oriented x3, Cooperative Dental: Dentures full Upper, Dentures full Lower Mouth Openin Fingerbreadth Neck Mobility: Normal Mallampati classification: II Thyromental Distance: 4-6 cm Respiratory: Lungs clear Cardiovascular: Regular rate Plan Anesthesia Type: General, Spinal Consent for Procedure(s) Verified and Reviewed: Yes Code Status: Attempt Resuscitation ASA classification: 2-Mild systemic disease Is this case an emergency?: No
[2023-06-29] MEDS ORDERED: ALBUTEROL 8 GM INHALER INH ONE (08:10)
[2023-06-29] MEDS ORDERED: fentaNYL 100 MCG/2 ML VIAL ONE (08:19)
[2023-06-29] MEDS ORDERED: CELECOXIB 100 MG CAPSULE PO ONE (08:21)
[2023-06-29] MEDS ORDERED: GABAPENTIN 400 MG CAPSULE ONE (08:21)
[2023-06-29] MEDS ORDERED: ACETAMINOPHEN 500 MG TABLET PO ONE (08:22)
[2023-06-29] MEDS ORDERED: DEXAMETHASONE 10 MG/ML VIAL ONE (08:22)
[2023-06-29] MEDS ORDERED: ceFAZolin 2 GM VIAL ONE ×2 (08:26→08:27)
[2023-06-29] MEDS ORDERED: SODIUM CHLORIDE 0.9% 10 ML VIAL IVP ONE (08:52)
[2023-06-29] MEDS ORDERED: ePHEDrine 50 MG/ML VIAL IVP ONE (08:52)
[2023-06-29] MEDS ORDERED: TRANEXAMIC ACID 1,000 MG/10 ML VIAL ONE (08:54)
[2023-06-29] MEDS ORDERED: DEXAMETHASONE 10 MG/ML VIAL PO ONE (09:00)
[2023-06-29] MEDS ORDERED: LACTATED RINGERS 1,000 ML IV SCH (09:00)
[2023-06-29] MEDS ORDERED: ACETAMINOPHEN 1,000 MG/100 ML 1,000 MG/100 ML BAG IV ONE ×2 (09:10→10:37)
[2023-06-29] MEDS ORDERED: ONDANSETRON 4 MG/2 ML VIAL ONE (09:11)
[2023-06-29] MEDS ORDERED: ROCURONIUM 50 MG/5 ML VIAL ONE (09:11)
[2023-06-29] MEDS ORDERED: KETAMINE 200 MG/20 ML VIAL ONE (09:12)
[2023-06-29] MEDS ORDERED: BUPIVACAINE 0.25% PF 30 ML VIAL SUBQ ONE ×2 (09:22)
[2023-06-29] MEDS ORDERED: KETOROLAC 30 MG/ML VIAL IVP ONE (09:23)
[2023-06-29] MEDS ORDERED: VANCOMYCIN 1 GM VIAL MC ONE (09:25)
[2023-06-29] MEDS ORDERED: HYDROGEN PEROXIDE 3% 473 ML BOTTLE TOP ONE (09:27)
[2023-06-29] MEDS ORDERED: SUGAMMADEX 200 MG/2 ML VIAL IVP ONE (10:33)
[2023-06-29] MEDS ORDERED: HYDROmorphone 1 MG/ML CARPUJECT ONE ×2 (10:37→11:36)
--- NOTE | 2023-06-29 10:40 | OPERATIVE REPORT ---
Operative Report - General Procedure Date: 06/29/23 Planned Procedure: Left total knee arthroplasty Pre-Op Diagnosis: Varus osteoarthritis left knee Procedure Performed: Left total knee arthroplasty: [employer] journey 2 cruciate retaining #5 Oxinium femoral component, 10 mm tibial bearing, #3 primary tibial baseplate, 26 mm biconvex patellar component, antibiotic impregnated Palacos cement Post Op Diagnosis: Same as preoperative diagnosis - Procedure Note Primary Surgeon: William Sheffield MD Secondary Surgeon: Mamta Ashley PAC Anesthesia Provider: Cr Lewis CRNA Anesthesia Technique: General ET tube Estimated Blood Loss (mL): 150 Indications: This is a 58-year-old woman with a history of chronic, intermittent pain to both knees, especially with weightbearing activity. This has progressively worsened over the past 10 years despite nonoperative treatment she has tried nonoperative treatment as has been documented without success. She does have comorbidities including obesity, history of cigarette vaping which she stopped over 3 months ago, anxiety and depression which is controlled with medication and a history of past narcotic use which she has completely stopped. She does have decreased motion to the left knee, joint line tenderness but no effusion or synovitis. She walks with an antalgic gait. She did have x-rays that showed uocp-pu-swei contact of the medial compartment, osteophytes about the lateral compartment and patellofemoral joint consistent with varus osteoarthritis of the left knee. She has been evaluated preoperatively by primary care, attended joint camp and has signed informed consent for left total knee replacement Findings: There is eburnated bone surfaces to the medial compartment, partial-thickness articular cartilage loss to lateral compartment. Osteophytes about the tibiofemoral joint. Posterior cruciate intact. Patella showed loss of articular cartilage to the trochlea and articular loss to the patella with osteophytes about the patella Complications: None - Other Other Information/Narrative: The patient was brought to the operating room and was placed in a supine position. She was given a adductor canal block by anesthesia. A pneumatic tourniquet was applied to the proximal left thigh over cast padding. This was a conical shaped Aung thigh tourniquet that was sterile. A bump was placed on the operating room table to facilitate knee flexion of the left knee during surgery. A timeout procedure was performed by the entire operating room team and all were in agreement. A midline longitudinal incision was made with the knee in flexion. A medial parapatellar arthrotomy was made. The anterior horn of medial and lateral menisci were released and part of patellar fat pad was excised. The knee was flexed and the patella was dislocated laterally. A drill hole was made in the intramedullary notch with a 9.5 mm drill. Osteophytes about the proximal tibia and femur had been removed with a rongeur. The distal femoral cutting guide was aligned parallel to the posterior condyles. The intramedullary lilibeth and guide was advanced and the distal femoral guide was stab ilized with half pins. The distal 5 degrees valgus cut was made through the distal femoral guide. Next the extra medullary tibial guide was applied and aligned to the mechanical axis in both sagittal and coronal planes. Tibial referencing was done to allow 3 mm of bone from the most affected side. The tibial guide was stabilized with half pins. Retractors were placed medially and laterally to protect the collateral ligaments and a retractor was placed directly against the posterior bone to sublux the tibia anteriorly. An oscillating saw was used to make the tibial proximal cut. The tibial block was removed as a single piece and the menisci were removed as well. The extension gap was assessed with a extension block spacer using a 10 mm spacer and this was found to fit well as well as the 9 mm spacer block with the knee in 90 degrees of flexion. Next the femoral positioning guide was applied and aligned to the epicondylar axis and Nubia line. This was secured in place with approximately 3 degrees of external rotation. The size of the femur at the anterior lateral trochlea was a #5. Drill holes were made in the 5 and 1 #5 cutting block was inserted and secured. The 5 cuts were made to the captured block using oscillating saw. The flexion gap was assessed with the 10 mm spacer and was found to fit well. The patella was then prepared. A biconvex patellar reamer was used. The tibial trial #3 was then applied to the tibia and aligned to the mechanical axis. The punch fin was utilized. Trial reduction was performed with the femoral and tibial components in place. Notch resection was then through the trial component. Pulsatile lavage was performed. A tourniquet was applied during the cementing process. The components were inserted sequentially: Tibia, femur and lastly patellar component. Excess cement was removed and the knee was placed in extension during the hardening. Dilute Betadine irrigation was performed. Vancomycin 2 g powder was inserted prior to the closure of the arthrotomyThe knee had full range of motion, good patellar tracking. There was good stability of the knee in full extension mid flexion and 90 degrees of flexion. There was good alignment of the left knee. The tourniquet had been deflated and had been in place for 18 minutes. Hemostasis was achieved with electrocautery. The deep closure was performed with #1. S TRATAFIX suture to close the arthrotomy incision. 2-0 Strata fix was used to close the subcutaneous tissue. 3-0 Monocryl was used to do a subcuticular skin closure. Dermabond was applied to the skin incision. After the Dermabond had hardened, a silver impregnated dressing was applied. She tolerated the procedure well and received 2 g of Ancef intravenously and 2 g of tranexamic acidA physician fleet administrative assistant was medically necessary to help with prepping and draping, positioning, protection of vital structures, assistance during the procedure including wound closure, dressing and/or splinting.
[2023-06-29] MEDS ORDERED: LIDOCAINE-PF 2% 10 ML AMP SUBQ ONE (10:53)
[2023-06-29] MEDS ORDERED: fentaNYL 250 MCG/5 ML VIAL IVP PRN (11:16)
[2023-06-29] MEDS ORDERED: DOCUSATE SODIUM 100 MG CAPSULE PO PRN (11:16)
[2023-06-29] MEDS ORDERED: SODIUM CHLORIDE FLUSH 0.9% 10 ML SYRINGE IVP PRN (11:16)
[2023-06-29] MEDS ORDERED: GABAPENTIN 300 MG CAPSULE PO PRN (11:20)
[2023-06-29] MEDS ORDERED: CYCLOBENZAPRINE 10 MG TABLET PO PRN (11:25)
[2023-06-29] MEDS ORDERED: ALBUTEROL NEB 2.5 MG/3 ML INH PRN (11:58)
[2023-06-29] MEDS ORDERED: NS W/20 MEQ KCL 1,000 ML IV SCH (12:00)
[2023-06-29] MEDS: HYDROmorphone 0.5 MG/0.5 ML SYRINGE IVP PRN ×2 (12:30→12:40)
--- NOTE | 2023-06-29 13:38 | XRAY Report ---
PROCEDURE: Knee 2 View LT INDICATIONS: post operative imaging TECHNIQUE: 3 views of the knee was obtained. COMPARISON: None FINDINGS: Bones: Total knee prosthesis in good position no fracture. Soft tissues: Postoperative soft tissue findings. IMPRESSION: Total knee arthroplasty in good position Reviewed by: Kristian Alves MD on 06/29/2023 12:36 PM [place] Approved by: Kristian Alves MD on 06/29/2023 12:36 PM [place] Station ID: [id number]
[2023-06-29] MEDS: oxyCODONE 5 MG TABLET PO PRN ×2 (15:02→21:03)
--- NOTE | 2023-06-29 16:53 | ANESTHESIA POST OP EVALUATION ---
Anesthesia Post Eval - Post Anesthesia Eval Vitals: Last Vital Signs Temp 36.4 C L 06/29/23 13:47 Pulse 94 06/29/23 14:30 Resp 14 06/29/23 14:30 BP 107/85 H 06/29/23 14:30 Pulse Ox 95 06/29/23 14:30 O2 Flow Rate 2 06/29/23 14:30 CV Function Including HR & BP: Stable Pain Control: Satisfactory Nausea & Vomiting: Negative Mental Status: Baseline Respiratory Status: Airway Patent Hydration Status: Satisfactory Anesthesia Complications: None
[2023-06-29] MEDS: SODIUM CHLORIDE FLUSH 0.9% 10 ML SYRINGE IVP SCH (17:39)
[2023-06-29] MEDS: ALPRAZOLAM PO SCH ×2 (17:43→20:31)
[2023-06-29] MEDS: traMADol 50 MG TABLET PO SCH ×2 (17:44→17:48)
[2023-06-29] MEDS: ACETAMINOPHEN 500 MG TABLET PO SCH ×2 (17:50→17:53)
[2023-06-29] MEDS: ceFAZolin (2G) 2 GM in SODIUM CHLORIDE 0.9% MINIBAG 100 ML IV SCH ×3 (18:44→22:21)
[2023-06-29] MEDS ORDERED: BUDESONIDE 0.5 MG/2 ML NEB INH SCH (19:00)
[2023-06-29] MEDS ORDERED: FORMOTEROL FUMARATE NEB 20 MCG/2 ML INH SCH (19:00)
[2023-06-29] MEDS: CELECOXIB 100 MG CAPSULE PO SCH (20:45)
[2023-06-29] MEDS: ASPIRIN EC 81 MG TABLET PO SCH (20:46)
[2023-06-29] MEDS: ethyl alcohoL 62% SWAB AMPULE NAS SCH (20:46)
[2023-06-29] MEDS ORDERED: ZOLPIDEM 5 MG TABLET PO SCH (21:00)
[2023-06-29] MEDS ORDERED: ALPRAZolam 0.25 MG TABLET PO PRN (21:10)
[2023-06-29] MEDS ORDERED: ALPRAZolam 0.25 MG TABLET PO STA (22:35)
[2023-06-30] MEDS: ACETAMINOPHEN 500 MG TABLET PO SCH ×2 (00:01→05:43)
[2023-06-30] MEDS: traMADol 50 MG TABLET PO SCH ×2 (00:02→05:43)
[2023-06-30] MEDS: SODIUM CHLORIDE FLUSH 0.9% 10 ML SYRINGE IVP SCH (00:03)
[2023-06-30] MEDS: oxyCODONE 5 MG TABLET PO PRN ×2 (03:25→09:36)
[2023-06-30] MEDS: ceFAZolin (2G) 2 GM in SODIUM CHLORIDE 0.9% MINIBAG 100 ML IV SCH (05:02)
[2023-06-30] MEDS ORDERED: lisinopriL 5 MG TABLET PO SCH (09:00)
[2023-06-30] MEDS ORDERED: ESCITALOPRAM 10 MG TABLET PO SCH (09:00)
[2023-06-30] MEDS ORDERED: buPROPion SR 100 MG TABLET PO SCH (09:00)
[2023-06-30] MEDS ORDERED: CHERRY SYRUP 10 ML UDC PO ONE (09:00)
[2023-06-30] MEDS ORDERED: ALPRAZolam 0.25 MG TABLET PO SCH (09:00)
[2023-06-30] MEDS ORDERED: FAMOTIDINE 20 MG TABLET PO SCH (09:00)
[2023-06-30] MEDS: ethyl alcohoL 62% SWAB AMPULE NAS SCH (09:35)
[2023-06-30] MEDS: ASPIRIN EC 81 MG TABLET PO SCH (09:36)
[2023-06-30] MEDS: CELECOXIB 100 MG CAPSULE PO SCH (09:36)
[2023-06-30 12:00] VITALS: O2SAT 93
[2023-06-30 13:49] VITALS: BP 122/82
== END 2023-06-30 13:20 | disposition home or self-care (01) ==
LOC: SDS 07:02 → MS2 13:17 → SDS 06-30 13:20
PROVIDERS: ATTEND Orthopaedic Surgery
DX: M17.12 Unilateral primary osteoarthritis, left knee (principal); E66.9 Obesity, unspecified; Z68.31 Body mass index [BMI] 31.0-31.9, adult; G47.30 Sleep apnea, unspecified; J45.909 Unspecified asthma, uncomplicated; I10 Essential (primary) hypertension; Z87.891 Personal history of nicotine dependence; F41.9 Anxiety disorder, unspecified; F32.A Depression, unspecified
CPT/HCPCS: 27447; 73560; A9270; C1713; J0131; J1170; J3010; J3370; J3490; J7120; J8540

== ENCOUNTER 2023-07-20 15:28 | Emergency (ER) | payer MEDICAID ==
--- NOTE | 2023-07-20 15:46 | ED Physician Documentation ---
PD HPI LOWER EXT INJURY - Stated complaint Stated Complaint: LT LEG PX - Chief complaint Chief Complaint: Ext Problem - History obtained from History obtained from: Patient - History of Present Illness PD HPI LOW EXT INJURY LOCATION: Left, Knee, Lower leg Type of injury: Other (knee replacement 2 1/2 weeks ago and was doing okay post op, starting to be more activy and started PT. Has had increased pain anterior knee the past 2-3 days, much worse today. Has swelling and some warmth/mild redness anterolateral aspect of peripatellar area.). No: Fall, Twist Timing - details: Gradual onset, Still present Associated symptoms: Weakness, Swelling. No: Numbness Similar symptoms before: Has not had sx before Recently seen: Surgery (knee replacement here Dr. Sheffield 2 1/2 weeks ago.) Review of Systems Constitutional: denies: Fever, Chills, Myalgias Cardiac: denies: Chest pain / pressure, Palpitations Respiratory: denies: Dyspnea, Cough GI: reports: Nausea. denies: Abdominal Pain, Vomiting, Constipation, Diarrhea PD PAST MEDICAL HISTORY - Past Medical History Cardiovascular: Hypertension Respiratory: Asthma, Sleep apnea Neuro: None Endocrine/Autoimmune: None GI: GERD : None HEENT: Dental implants Psych: Anxiety Musculoskeletal: Osteoarthritis, Chronic back pain - Past Surgical History Past Surgical History: Yes General: Cholecystectomy, Colonoscopy, EGD - Present Medications Home Medications: Ambulatory Orders Medication Instructions Recorded Confirmed Diclofenac Sodium 1% Gel [Voltaren 4 gm TOP QID PRN #1 each 01/28/23 06/29/23 Gel] Alprazolam [Xanax] 1 mg PO QID 03/25/23 06/29/23 Atorvastatin [Lipitor] 10 mg PO DAILY 03/25/23 06/29/23 Escitalopram Oxalate [Lexapro] 20 mg PO DAILY 03/25/23 06/29/23 Famotidine [Zantac-360 20 mg PO DAILY 03/25/23 06/29/23 (Famotidine)] Gabapentin [Neurontin] 300 mg PO TID 03/25/23 06/29/23 Lisinopril [Zestril] 2.5 mg PO DAILY 03/25/23 06/29/23 Meclizine [Antivert] 12.5 mg PO PRN PRN 03/25/23 06/20/23 Zolpidem [Ambien] 10 mg PO HS 03/25/23 06/29/23 buPROPion [Wellbutrin Sr] 100 mg PO DAILY 03/25/23 06/29/23 Albuterol Sulf [Ventolin Hfa 1 - 2 puffs INH Q4HR PRN 06/20/23 06/29/23 Inhaler] Budesonide/Formoterol Fumarate 2 puffs IH BID 06/20/23 06/29/23 [Symbicort 160-4.5 Mcg Inhaler] Doxycycline Hyclate 100 mg PO BID 7 Days #14 cap 07/20/23 HYDROcod/ACETAM 5/325 [Myrtle 5/325] 1 ea PO Q6H PRN #18 tablet 07/20/23 Meloxicam [Mobic] 7.5 mg PO BID 10 Days #20 tablet 07/20/23 Ondansetron Odt [Zofran] 4 mg TL Q6H PRN #10 tablet 07/20/23 - Allergies Allergies/Adverse Reactions: Allergies Allergy/AdvReac Type Severity Reaction Status Date / Time Penicillins Allergy Emesis, Verified 06/29/23 06:22 rash - Social History Does the pt smoke?: No Smoking Status: Never smoker Does the pt drink ETOH?: Yes Does the pt have substance abuse?: No PD ED PE NORMAL - Vitals Vital signs reviewed: Yes - General General: Alert and oriented X 3, Well developed/nourished, Other (appears in pain and is holding anterior left knee.) - Cardiac Cardiac: RRR, No murmur - Respiratory Respiratory: No respiratory distress, Clear bilaterally - Abdomen Abdomen: Soft, Non tender - Back Back: No CVA TTP - Derm Derm: Normal color, Warm and dry - Extremities Extremities: No calf tenderness / cord, Other (mild redness and warmth of the patellar area laterally noted. healing surgical scar without drainage nor dehiscence.) - Neuro Neuro: Alert and oriented X 3, No motor deficit, No sensory deficit Results - Vitals Vitals: Vital Signs - 24 hr 07/20/23 07/20/23 15:40 18:40 Temperature 36.2 C L 36.6 C Heart Rate 89 80 Respiratory 20 16 Rate Blood Pressure 119/69 147/93 H O2 Saturation 98 100 Oxygen O2 Source Room air - Labs Labs: Laboratory Tests 07/20/23 07/20/23 16:23 16:23 WBC 7.4 RBC 3.45 L Hgb 9.8 L Hct 32.6 L MCV 94.5 MCH 28.4 MCHC 30.1 L RDW 12.9 Plt Count 482 H MPV 9.3 Neut # (Auto) 5.0 Lymph # (Auto) 1.9 [place] # (Auto) 0.4 Eos # (Auto) 0.1 Baso # (Auto) 0.0 Absolute Nucleated RBC 0.00 Nucleated RBC % 0.0 Sodium 137 Potassium 3.5 Chloride 103 Carbon Dioxide 26 Anion Gap 8.0 BUN 12 Creatinine 0.8 Estimated GFR (MDRD) 73 L Glucose 103 Calcium 9.5 C-Reactive Protein 1.8 H - Rads (name of study) duplex left leg Relevant Findings:: Prelim report reviewed (no DVT. fluid collection along side of patella, possible hematoma. ) PD Medical Decision Making - ED course Complexity details: reviewed results (CRP only 1.8, WBC normal range. No fever. Does not appear infected significantly. ), re-evaluated patient (painmoderated by IM dilaudid and toradoo. Did ask for more meds and given PO hydrocodone. I am concerned for infection and so started abx. Most likely some hemaotoma and inflammation leading to pain. Encourage follow up with Ortho in next couple days. ), considered differential, d/w patient Departure - Departure Disposition: 01 Home, Self Care Clinical Impression: Bursitis Knee pain Qualifiers: Chronicity: acute Laterality: left Qualified Code(s): M25.562 - Pain in left knee Cellulitis Qualifiers: Site of cellulitis: extremity Site of cellulitis of extremity: lower extremity Laterality: left Qualified Code(s): L03.116 - Cellulitis of left lower limb Condition: Stable Record reviewed to determine appropriate education?: Yes Follow-Up: Miladis De Luna PA-C [Primary Care Provider] - William Sheffield MD [Provider Admit Priv/Credential] - Prescriptions: Doxycycline Hyclate 100 mg PO BID 7 Days #14 cap Meloxicam [Mobic] 7.5 mg PO BID 10 Days #20 tablet HYDROcod/ACETAM 5/325 [Myrtle 5/325] 1 ea PO Q6H PRN #18 tablet PRN Reason: Pain Ondansetron Odt [Zofran] 4 mg TL Q6H PRN #10 tablet PRN Reason: Nausea / Vomiting Comments: Your knee does have some warmth and mild redness that can be just inflammatory related to some underlying fluid in the area (hematoma or seroma). However these can develop infection and this may be an early presentation of that. You blood count is normal and no fevers, so less evidence for infection. Still, I would want to cover with an antibiotic just in case as well as treat with some anti-inflammatories and change your pain medicine to hydrocodone that you have tolerated better in the past. Your ultrasound showed some fluid collections around the incision area which again is likely either some local bleeding or some weeping fluid. The pressure of this can cause the inflammation and added pain. Follow-up with Dr. Sheffield in the next couple of days for reevaluation, call tomorrow for appt in follow up to this visit. The fluid collection is small and linear but might be amenable for drainage if he feels that is appropriate. I sent your prescriptions to your preferred pharmacy. I am prescribing a short course of narcotic pain medication for you. These are potentially dangerous and addictive medications that should be used carefully. These medications may constipate you. Take an jwjc-vlo-ejvewcz stool softener such as docusate twice daily with plenty of water while taking these medications. If you go 24 hours without a bowel movement, take [id number]-[id number] MiraLAX, per package instructions. Do not drink or drive while taking these medications. If you received narcotic or sedating medications while in the emergency department do not drive for 24 hours. Store this medication in a safe, secure place and out of reach of children. It is a violation of federal law to give or sell this medication to another person or to use in a manner other than prescribed. The ED will not refill narcotic prescriptions, including prescriptions lost or stolen. You can dispose of unwanted medications at the [facility]'s office or at several pharmacies such as [email or web address]. Forms: PCP List Discharge Date/Time: 07/20/23 18:40
[2023-07-20] MEDS ORDERED: HYDROmorphone 1 MG/ML CARPUJECT IM STA (16:06)
[2023-07-20] MEDS ORDERED: KETOROLAC 30 MG/ML VIAL IM STA (16:06)
[2023-07-20] MEDS ORDERED: DOXYCYCLINE 100 MG TABLET PO STA (16:06)
[2023-07-20 16:35] LABS: BASOPHILS % (AUTO) 0.5 %; EOSINOPHILS # (AUTO) 0.1 10^3/uL (0.0-0.7); EOSINOPHILS % (AUTO) 1.8 %; HCT - HEMATOCRIT 32.6 % (37.0-47.0); HGB - HEMOGLOBIN 9.8 g/dL (12.0-16.0); LYMPHOCYTES # (AUTO) 1.9 10^3/uL (1.5-3.5); LYMPHOCYTES % (AUTO) 25.3 %; MEAN CORPUSCULAR HEMOGLOBIN 28.4 pg (27.0-31.0); MEAN CORPUSCULAR HGB CONC 30.1 g/dL (32.0-36.0); MEAN CORPUSCULAR VOLUME 94.5 fL (81.0-99.0); MEAN PLATELET VOLUME 9.3 fL (7.9-10.8); MONOCYTES # (AUTO) 0.4 10^3/uL (0.0-1.0); MONOCYTES % (AUTO) 4.7 %; NEUTROPHILS % (AUTO) 67.6 %; PLT - PLATELET COUNT 482 10^3/uL (130-450); RED BLOOD COUNT 3.45 10^6/uL (4.20-5.40); RED CELL DISTRIBUTION WIDTH 12.9 % (12.0-15.0); WHITE BLOOD COUNT 7.4 x10^3/uL (4.8-10.8)
[2023-07-20] MEDS ORDERED: ONDANSETRON ODT 4 MG TABLET TL STA (16:52)
[2023-07-20 16:55] LABS: CALCIUM 9.5 mg/dL (8.5-10.3); CREATININE 0.8 mg/dL (0.6-1.3); CRP - C-REACTIVE PROTEIN 1.8 mg/dL (<0.5); POTASSIUM 3.5 mmol/L (3.5-4.5)
[2023-07-20] MEDS ORDERED: HYDROcod/ACETAM 5/325 MG TABLET PO STA (18:18)
[2023-07-20 18:44] VITALS: BP 147/93; O2SAT 100
--- NOTE | 2023-07-20 18:44 | Ultrasound Report ---
PROCEDURE: Duplex Ext Veins Left INDICATIONS: 2 1/2 wks postop knee with lower leg swelling TECHNIQUE: Real-time imaging, as well as color and pulse Doppler interrogation, were performed of the lower extr emity deep veins from the inguinal ligament to the popliteal fossa. Attempted visualization of the ca lf veins was performed. COMPARISON: Left knee radiographs 06/29/2023. FINDINGS: Patient unable to tolerate compression well. This limits the sensitivity of the exam. The deep veins are free of intraluminal thrombus. Color and pulse Doppler demonstrate normal phasic intraluminal flow. There is normal augmentation response to distal compression maneuver. Anterior to the knee fluid collection measuring 8.9 x 7.2 x 1 cm. No internal vascularity. Debris is present. Posterior fluid collection measuring 2.7 x 1.6 cm. IMPRESSION: Exam is technically difficult and limited. No left lower extremity DVT is identified. Possible hematoma anterior to the knee. Suspect Merino's cyst. Reviewed by: Scott Felix MD on 07/20/2023 6:43 PM PST Approved by: Scott Felix MD on 07/20/2023 6:43 PM PST Station ID: [id number]
== END 2023-07-20 18:40 | disposition home or self-care (01) ==
LOC: ED 15:28
DX: M71.9 Bursopathy, unspecified (principal); M25.562 Pain in left knee; L03.116 Cellulitis of left lower limb; I10 Essential (primary) hypertension; Z79.899 Other long term (current) drug therapy; Z79.51 Long term (current) use of inhaled steroids
CPT/HCPCS: 36415; 80048; 85025; 86140; 93971; 96374; 96375; 99283; 99284; A9270; J1170; Q0162

== ENCOUNTER 2023-08-03 15:58 | Outpatient (CLI) | payer MEDICAID ==
[2023-08-03 16:26] LABS: ABSOLUTE RETICS # AUTO 0.077 10^6/uL (0.020-0.110); BASOPHILS % (AUTO) 0.5 %; EOSINOPHILS # (AUTO) 0.3 10^3/uL (0.0-0.7); EOSINOPHILS % (AUTO) 2.9 %; HCT - HEMATOCRIT 32.4 % (37.0-47.0); LYMPHOCYTES # (AUTO) 1.9 10^3/uL (1.5-3.5); LYMPHOCYTES % (AUTO) 21.5 %; MEAN CORPUSCULAR HEMOGLOBIN 28.1 pg (27.0-31.0); MEAN CORPUSCULAR HGB CONC 30.9 g/dL (32.0-36.0); MEAN PLATELET VOLUME 9.7 fL (7.9-10.8); MONOCYTES # (AUTO) 0.4 10^3/uL (0.0-1.0); MONOCYTES % (AUTO) 4.1 %; NEUTROPHILS # (AUTO) 6.1 10^3/uL (1.5-6.6); NEUTROPHILS % (AUTO) 70.9 %; PLT - PLATELET COUNT 363 10^3/uL (130-450); RED BLOOD COUNT 3.56 10^6/uL (4.20-5.40); RED CELL DISTRIBUTION WIDTH 13.1 % (12.0-15.0); RETICULOCYTE COUNT % (AUTO) 2.16 % (0.5-2.3); WHITE BLOOD COUNT 8.6 x10^3/uL (4.8-10.8)
[2023-08-03 16:37] LABS: % IRON SATURATION 11 % (20-50); ALBUMIN 4.1 g/dL (3.2-5.5); ALBUMIN/GLOBULIN RATIO 1.3 (1.0-2.2); ALKALINE PHOSPHATASE 112 IU/L (42-121); ALT ALANINE AMINOTRANSFERASE 9 IU/L (10-60); AST ASPARTATE AMINOTRANSFERASE 15 IU/L (10-42); BILIRUBIN,TOTAL 0.3 mg/dL (0.2-1.0); BUN - BLOOD UREA NITROGEN 10 mg/dL (6-20); CARBON DIOXIDE - CO2 29 mmol/L (21-32); CHLORIDE 103 mmol/L (101-111); CREATININE 0.6 mg/dL (0.6-1.3); GFR - MDRD 102 (>89); GLUCOSE 113 mg/dL (74-104); IRON 35 ug/dL (50-212); POTASSIUM 3.9 mmol/L (3.5-4.5); SODIUM 138 mmol/L (135-145); TOTAL IRON BINDING CAPACITY 333 ug/dL (250-450); TOTAL PROTEIN 7.3 g/dL (6.4-8.9); TRANSFERRIN 238 mg/dL (203-362)
[2023-08-03 16:50] LABS: FERRITIN 82.9 ng/mL (11.0-306.8)
== END 2023-08-03 15:59 | disposition home or self-care (01) ==
LOC: LAB 15:58
PROVIDERS: ATTEND Physician Assistant
DX: D64.9 Anemia, unspecified (principal)
CPT/HCPCS: 36415; 80053; 82607; 82728; 82746; 83540; 84466; 85025; 85045

== ENCOUNTER 2023-08-23 08:00 | Outpatient (CLI) | payer MEDICAID ==
--- NOTE | 2023-08-23 14:03 | XRAY Report ---
PROCEDURE: Knee 4 View LT INDICATIONS: LEFT TOTAL KNEE FOLLOWUP TECHNIQUE: 4 views of the knee(s) were acquired. COMPARISON: 06/29/2023. FINDINGS: Bones: No fractures or dislocations. No suspicious bony lesions. Stable postsurgical changes and alignment of left total knee arthroplasty without evidence for hardware complication. Soft tissues: Small knee joint effusion. Mild persistent left knee soft tissue swelling. No suspicio us soft tissue calcifications or masses. IMPRESSION: Stable post surgical changes and alignment of left total knee arthroplasty without evidence for hardw are complication. Reviewed by: Sunday Groves MD on 08/23/2023 2:02 PM PST Approved by: Sunday Groves MD on 08/23/2023 2:02 PM PST Station ID: [id number]
== END 2023-08-23 23:59 | disposition home or self-care (01) ==
LOC: DI.WOS 08:00
PROVIDERS: ATTEND Orthopaedic Surgery
DX: Z96.652 Presence of left artificial knee joint (principal)

== ENCOUNTER 2023-08-25 15:57 | Outpatient (CLI) | payer MEDICAID ==
--- NOTE | 2023-08-26 16:42 | Ultrasound Report ---
PROCEDURE: Pelvic w/Transvaginal INDICATIONS: THICKENED ENDOMETRIUM TECHNIQUE: Real-time scanning was performed of the pelvic organs, with image documentation. Additional endovagi nal scanning was necessary due to incomplete visualization of the adnexal and endometrial structures by transabdominal scanning. COMPARISON: Pelvic ultrasound 04/27/2023 FINDINGS: Uterus: Uterus is retroverted and normal in size at 4.6 x 2 0.5-3.9 cm. The endometrium measures 3. 7 mm in combined thickness. There is a right lower uterine segment focus of intramural areas echogen icity measuring 10 x 5 x 8 mm, stable in size. A mid fundal anterior subserosal similar appearing foc us measuring 11 x 13 x 11 mm is present, also stable compared to prior exam. Ovaries: The right ovary measures 2.3 x 1.0 x 2.4 cm, with a calculated ovarian volume of 2.8 cc. T he left ovary measures 1.6 x 1.1 x 2.1 cm, with a calculated ovarian volume of 1.1 cc. Simple paraova emeli cyst on the left is present measuring 1.2 x 1.3 x 1.8 cm. Other: No pathologic free abdominal o r pelvic fluid. IMPRESSION: Stable uterine fibroids. Left paraovarian cyst unchanged. Reviewed by: Rosamaria Estrella MD on 08/26/2023 4:41 PM PST Approved by: Rosamaria Estrella MD on 08/26/2023 4:41 PM PST Station ID: [id number]
== END 2023-08-25 15:58 | disposition home or self-care (01) ==
LOC: DI 15:57
PROVIDERS: ATTEND Obstetrics & Gynecology
DX: N85.00 Endometrial hyperplasia, unspecified (principal); N83.202 Unspecified ovarian cyst, left side; D25.1 Intramural leiomyoma of uterus; D25.2 Subserosal leiomyoma of uterus